=== PATIENT | female | born 1990 | race Caucasian/White ===

== ENCOUNTER 2022-09-11 06:01 | Inpatient (IN) | payer BC ==
[2022-09-10 11:06] LABS: Hemoglobin 10.4 g/dL (12.0-15.5); Platelet Count 232 10x3/uL (150-450)
[2022-09-10 11:50] LABS: HBSAg Index 0.14 S/CO (0-0.99); Hep B Surf Ag Non-Reactive S/CO (NonReactive)
[2022-09-10 11:51] LABS: Syphilis Antibody Nonreactive (Nonreactive); Syphilis Antibody Index 0.03 S/CO (<1.00 Non-Reactive)
[2022-09-11] MEDS ORDERED: hydrALAZINE 20 MG/ML VIAL SLOW IVP PRN ×2 (06:10→11:23)
[2022-09-11] MEDS ORDERED: Promethazine HCl 25 MG/ML VIAL IM PRN ×2 (06:10→07:20)
[2022-09-11] MEDS ORDERED: CEFAZOLIN 2 GM in Sodium Chloride 0.9% 100 ML IVPB SCH (06:10)
[2022-09-11] MEDS ORDERED: Bicitra 30 ML UDCUP PO PRN (06:10)
[2022-09-11] MEDS ORDERED: Ondansetron PF 4 MG/2 ML Vial IVP PRN ×3 (06:10→11:23)
[2022-09-11] MEDS ORDERED: Famotidine/PF 20 mg/2ml Vial SLOW IVP PRN (06:10)
[2022-09-11 06:28] VITALS: BMI 44.6
[2022-09-11] MEDS ORDERED: Lactated Ringer's 1,000 ML IV SCH (06:30)
[2022-09-11] MEDS ORDERED: NS w/ Oxytocin 30 units 500 ML IV SCH (06:30)
[2022-09-11] MEDS ORDERED: Morphine PF 10 MG/10 ML VIAL ONE (07:12)
[2022-09-11] MEDS ORDERED: ePHEDrine Sulfate 50 MG/10 ML VIAL ONE (07:12)
[2022-09-11] MEDS ORDERED: Dexamethasone 4 mg/ml Vial ONE (07:13)
[2022-09-11] MEDS ORDERED: Ketorolac Tromethamine 30 MG/ML VIAL ONE (07:13)
[2022-09-11] MEDS ORDERED: Glycopyrrolate 0.2 MG/ML 5 ML SYRINGE ONE (07:13)
[2022-09-11] MEDS ORDERED: Ondansetron PF 4 MG/2 ML Vial ONE (07:13)
[2022-09-11] MEDS ORDERED: Phenylephrine 40 MG/NS 250 ML 250 ML ONE (07:13)
[2022-09-11] MEDS ORDERED: Oxytocin 10 UNITS/ML VIAL ONE (07:13)
[2022-09-11] MEDS ORDERED: PHENYLEPHRINE-NS 100 MCG/ML 10 ML SYRINGE ONE (07:13)
[2022-09-11] MEDS ORDERED: Ondansetron HCl/PF 4 MG/2 ML Vial IVP PRN (07:20)
[2022-09-11] MEDS ORDERED: Moisturizing Cream (Eucerin) 113 GM JAR TOP PRN (07:20)
[2022-09-11] MEDS ORDERED: Fentanyl 100 MCG/2 ML VIAL SLOW IVP PRN (07:20)
[2022-09-11] MEDS ORDERED: Ketorolac Tromethamine 30 MG/ML VIAL IVP PRN (07:20)
[2022-09-11] MEDS ORDERED: diphenhydrAMINE 50 MG/ML VIAL IVP PRN (07:20)
[2022-09-11] MEDS ORDERED: Naloxone HCl 0.4 mg/ml Vial IV PRN (07:20)
[2022-09-11] MEDS ORDERED: Meperidine HCl/PF 25 MG/ML VIAL SLOW IVP PRN (07:20)
[2022-09-11] MEDS ORDERED: Naloxone HCl 0.4 mg/ml Vial IVP PRN ×2 (07:20)
[2022-09-11] MEDS ORDERED: Promethazine HCl 25 MG SUPP PR PRN (07:20)
[2022-09-11] MEDS ORDERED: Communication Order-Pharmacy FS SCH (07:30)
[2022-09-11] MEDS ORDERED: Ketorolac Tromethamine 30 MG/ML VIAL IVP SCH (07:30)
[2022-09-11] MEDS ORDERED: HYDROcodone/Acetaminophen 5/325 mg Tablet PO PRN (11:23)
[2022-09-11] MEDS ORDERED: diphenhydrAMINE 25 MG CAP PO PRN (11:23)
[2022-09-11] MEDS ORDERED: Lanolin Ointment 7 GM TUBE TOP PRN (11:23)
[2022-09-11] MEDS ORDERED: Bisacodyl 10 MG SUPP PR PRN (11:23)
[2022-09-11] MEDS ORDERED: Simethicone Chewable 80 MG TAB PO PRN (11:23)
[2022-09-11] MEDS ORDERED: Boostrix 0.5 ML (Tdap) VIAL (>/=7 yrs of age) IM ONE (11:23)
[2022-09-11] MEDS ORDERED: Docusate 100 MG CAP PO SCH (11:45)
[2022-09-11] MEDS ORDERED: Ferrous Sulfate 325 MG TAB PO SCH (12:00)
[2022-09-11] MEDS ORDERED: Prenatal Vitamin 1 TAB PO SCH (12:00)
[2022-09-11] MEDS ORDERED: Ibuprofen 800 MG TAB PO SCH (14:00)
[2022-09-11] MEDS: Ketorolac Tromethamine 30 MG/ML VIAL IVP SCH (17:02)
[2022-09-11] MEDS: Ferrous Sulfate 325 MG TAB PO SCH (19:35)
[2022-09-11] MEDS: Docusate 100 MG CAP PO SCH (20:19)
[2022-09-11] MEDS: HYDROcodone/Acetaminophen 5/325 mg Tablet PO PRN (20:19)
[2022-09-12] MEDS: Ketorolac Tromethamine 30 MG/ML VIAL IVP SCH ×2 (00:04→06:03)
[2022-09-12] MEDS: HYDROcodone/Acetaminophen 5/325 mg Tablet PO PRN ×5 (01:01→21:20)
[2022-09-12 04:20] LABS: Mean Corpuscular HGB CONC 32.1 g/dL (32.0-36.0); Mean Corpuscular Hemoglobin 28.4 pg (27.0-33.0); Mean Corpuscular Volume 88.3 fl (81.6-98.3); Mean Platelet Volume 10.3 fl (7.4-10.4); Platelet Count 210 10x3/uL (150-450); RBC Distribution Width 15.4 % (11.5-14.5); Red Blood Cell (RBC) Count 3.17 10x6/uL (3.90-5.03); White Blood Cell (WBC) Count 10.5 10x3/uL (3.5-10.5)
[2022-09-12] MEDS: Docusate 100 MG CAP PO SCH ×2 (08:06→21:18)
[2022-09-12] MEDS: Prenatal Vitamin 1 TAB PO SCH (08:06)
[2022-09-12] MEDS: Ferrous Sulfate 325 MG TAB PO SCH ×2 (08:06→21:18)
[2022-09-12] MEDS: Ibuprofen 800 MG TAB PO SCH ×2 (13:56→21:18)
[2022-09-13] MEDS: HYDROcodone/Acetaminophen 5/325 mg Tablet PO PRN ×4 (01:29→19:58)
[2022-09-13] MEDS: Ibuprofen 800 MG TAB PO SCH ×3 (06:16→21:18)
[2022-09-13] MEDS: Ferrous Sulfate 325 MG TAB PO SCH ×2 (07:59→21:18)
[2022-09-13] MEDS: Prenatal Vitamin 1 TAB PO SCH (07:59)
[2022-09-13] MEDS: Docusate 100 MG CAP PO SCH ×2 (07:59→21:18)
[2022-09-14] MEDS: HYDROcodone/Acetaminophen 5/325 mg Tablet PO PRN ×3 (00:10→12:07)
[2022-09-14] MEDS: Ibuprofen 800 MG TAB PO SCH (05:21)
[2022-09-14] MEDS: Prenatal Vitamin 1 TAB PO SCH (08:12)
[2022-09-14] MEDS: Ferrous Sulfate 325 MG TAB PO SCH (08:12)
[2022-09-14] MEDS: Docusate 100 MG CAP PO SCH (08:13)
[2022-09-14 14:25] VITALS: BP 121/59; TEMP 98.2
== END 2022-09-14 12:40 | disposition home or self-care (01) | DRG 788 ==
LOC: CSHLD 06:01 → CSHPP 10:45
PROVIDERS: ADMIT Obstetrics & Gynecology; ATTEND Obstetrics & Gynecology
PROC: 10D00Z1 Extraction of Products of Conception, Low, Open Approach (ICD-10-PCS; principal; 2022-09-11)
DX: O34.211 Maternal care for low transverse scar from previous cesarean delivery (principal); Z3A.39 39 weeks gestation of pregnancy; Z37.0 Single live birth; F41.9 Anxiety disorder, unspecified; O99.344 Other mental disorders complicating childbirth; O99.824 Streptococcus B carrier state complicating childbirth; O77.0 Labor and delivery complicated by meconium in amniotic fluid; O90.81 Anemia of the puerperium; D50.8 Other iron deficiency anemias; Z67.21 Type B blood, Rh negative; Z98.890 Other specified postprocedural states
CPT/HCPCS: 36415; 51702; 85014; 85018; 85027; 85049; 86780; 86850; 86900; 86901; 87340; J1100; J1885; J2274; J2405; J2590

== ENCOUNTER 2022-09-20 22:30 | Inpatient (IN) | payer BC ==
[~2022-09-20 22:30] MED LIST: Iopamidol 300 61% 100 ML VIAL FS ONE
[2022-09-20] MEDS ORDERED: Morphine 4 MG/ML VIAL ONE (23:27)
[2022-09-20] MEDS ORDERED: Ondansetron PF 4 MG/2 ML Vial ONE (23:27)
[2022-09-20 23:47] LABS: #Basophils 0.1 10x3/uL (0.0-0.2); #Eosinphils 0.3 10x3/uL (0.0-0.5); #Monocytes 0.8 10x3/uL (0.0-1.1); #Neutrophils 12.9 10x3/uL (1.5-8.4); %Basophils 0.3 % (0.0-2.0); %Eosinophils 1.7 % (0.0-6.0); %Lymphocytes 9.5 % (18.0-47.0); %Monocytes 5.1 % (0.0-10.0); %Neutrophils 82.3 % (40.0-75.0); Bilirubin Neg (Negative); Blood, Urine 250 (Negative); Clarity Slightly Cloudy (Clear); Glucose, Urine (Dipstick) Normal (Negative); Hemoglobin 11.4 g/dL (12.0-15.5); Ketone, Urine Negative (Negative); Leukocyte 100 (Negative); Mean Corpuscular HGB CONC 32.2 g/dL (32.0-36.0); Mean Corpuscular Hemoglobin 28.1 pg (27.0-33.0); Mean Corpuscular Volume 87.2 fl (81.6-98.3); Mean Platelet Volume 9.3 fl (7.4-10.4); Nitrite Negative (Negative); Platelet Count 315 10x3/uL (150-450); Protein, Urine (Dipstick) 30 mg/dl (Neg-Trace); RBC Distribution Width 15.4 % (11.5-14.5); Red Blood Cell (RBC) Count 4.06 10x6/uL (3.90-5.03); Specific Gravity, Urine 1.025 (1.005-1.030); Urobilinogen Normal mg/dL (Less than 2); White Blood Cell (WBC) Count 15.7 10x3/uL (3.5-10.5)
[2022-09-20 23:57] LABS: Bacteria/HPF Rare-Few HPF (None Seen); RBC/HPF 21-50 HPF (0-3); Squamous Epithelial 0-3 HPF (0-3)
[2022-09-21 00:01] LABS: ALT (SGPT) 31 U/L (8-55); AST (SGOT) 26 U/L (5-34); Albumin 3.8 g/dL (3.5-5.0); Alkaline Phosphatase 72 U/L (40-110); Anion Gap 16 mmol/L (10-20); BUN (Urea Nitrogen) 16 mg/dL (7.0-18.7); Bilirubin, Total 0.3 mg/dL (0.2-1.2); Calc. Creatinine Clearance 0 mL/min (70-130); Calcium 8.7 mg/dL (7.8-10.44); Carbon Dioxide 21 mmol/L (22-29); Chloride 103 mmol/L (98-107); Estimated GFR 98; Globulin 2.9 g/dL (2.4-3.5); Glucose 100 mg/dL (70-105); Potassium 3.7 mmol/L (3.5-5.1); Protein, Total 6.7 g/dL (6.0-8.3); Sodium 136 mmol/L (136-145)
[2022-09-21] MEDS ORDERED: Piperacillin/Tazobactam 3.375 GM VIAL ONE (00:21)
[2022-09-21] MEDS ORDERED: HYDROmorphone 0.5 MG/0.5 ML SYRINGE ONE (00:29)
[2022-09-21] MEDS ORDERED: Morphine 4 MG/ML VIAL SLOW IVP PRN ×2 (01:59→10:47)
[2022-09-21] MEDS ORDERED: Ondansetron PF 4 MG/2 ML Vial IVP PRN ×2 (02:00→10:47)
[2022-09-21] MEDS ORDERED: Acetaminophen 325 MG TAB PO PRN (02:00)
[2022-09-21] MEDS ORDERED: Ondansetron ODT 4 MG TAB SL PRN (02:00)
[2022-09-21 02:03] VITALS: BMI 37.3
[2022-09-21] MEDS: HYDROmorphone 0.5 MG/0.5 ML SYRINGE SLOW IVP PRN ×3 (02:18→08:59)
[2022-09-21] MEDS: Sodium Chloride 0.9% 1,000 ML IV SCH ×2 (02:19→09:53)
[2022-09-21] MEDS ORDERED: Piperacillin/Tazobactam 3.375 GM in Sodium Chloride 0.9% 100 ML IVPB SCH (08:45)
[2022-09-21] MEDS ORDERED: Bupivacaine HCl 0.5%/Epinephrine 1:200,000/PF 30 ml Vial ONE (08:58)
[2022-09-21] MEDS ORDERED: SUGAMMADEX SODIUM 200 MG/2 ML VIAL ONE (08:58)
[2022-09-21] MEDS ORDERED: PROPOFOL 20 ML ONE (09:08)
[2022-09-21] MEDS ORDERED: Fentanyl 100 MCG/2 ML VIAL ONE (09:08)
[2022-09-21] MEDS ORDERED: Ondansetron PF 4 MG/2 ML Vial ONE (09:09)
[2022-09-21] MEDS ORDERED: Rocuronium Bromide 10 MG/ML (10ML VIAL) ONE (09:09)
[2022-09-21] MEDS ORDERED: Dexamethasone 20 MG/5 ML VIAL ONE (09:09)
[2022-09-21] MEDS ORDERED: Ketorolac Tromethamine 30 MG/ML VIAL ONE ×2 (09:11→10:36)
[2022-09-21] MEDS ORDERED: Glycopyrrolate 0.2 MG/ML 5 ML SYRINGE ONE (09:11)
[2022-09-21] MEDS ORDERED: Succinylcholine 200 MG/10 ml SYRINGE FS ONE (09:11)
[2022-09-21] MEDS ORDERED: PHENYLEPHRINE-NS 100 MCG/ML 10 ML SYRINGE ONE (10:13)
[2022-09-21] MEDS ORDERED: Promethazine HCl 25 MG/ML VIAL IM PRN (10:47)
[2022-09-21] MEDS ORDERED: Dextrose 50% Abboject 50 ML SYRINGE SLOW IVP PRN (10:47)
[2022-09-21] MEDS ORDERED: Morphine 2 MG/ML VIAL SLOW IVP PRN (10:47)
[2022-09-21] MEDS ORDERED: HYDROcodone/Acetaminophen 10/325 mg Tablet PO PRN (10:47)
[2022-09-21] MEDS ORDERED: Dextrose 5% in Water 1,000 ML IV PRN (10:47)
[2022-09-21] MEDS ORDERED: hydrALAZINE 20 MG/ML VIAL SLOW IVP PRN (10:47)
[2022-09-21] MEDS ORDERED: Ipratropium/Albuterol 3 ML NEB NEB PRN (10:47)
[2022-09-21] MEDS: D5 1/2 NS w/20 mEq KCL 1,000 ML IV SCH (12:00)
[2022-09-21] MEDS: Piperacillin/Tazobactam 3.375 GM in Sodium Chloride 0.9% 100 ML IVPB SCH ×2 (13:48→21:23)
[2022-09-21] MEDS: Ketorolac Tromethamine 30 MG/ML VIAL IVP SCH ×2 (16:30→22:32)
[2022-09-21] MEDS: HYDROcodone/Acetaminophen 10/325 mg Tablet PO PRN ×2 (18:47→23:39)
[2022-09-21] MEDS ORDERED: Famotidine/PF 20 mg/2ml Vial SLOW IVP SCH (21:00)
[2022-09-21] MEDS ORDERED: Famotidine 20 MG TAB PO SCH (21:00)
[2022-09-22] MEDS: D5 1/2 NS w/20 mEq KCL 1,000 ML IV SCH ×2 (02:12→04:59)
[2022-09-22 04:03] LABS: #Monocytes 0.5 10x3/uL (0.0-1.1); #Neutrophils 8.1 10x3/uL (1.5-8.4); %Basophils 0.2 % (0.0-2.0); %Eosinophils 0.1 % (0.0-6.0); %Lymphocytes 12.3 % (18.0-47.0); %Monocytes 5.2 % (0.0-10.0); %Neutrophils 81.2 % (40.0-75.0); Hemoglobin 9.7 g/dL (12.0-15.5); Mean Corpuscular HGB CONC 32.1 g/dL (32.0-36.0); Mean Corpuscular Hemoglobin 28.5 pg (27.0-33.0); Mean Corpuscular Volume 88.8 fl (81.6-98.3); Mean Platelet Volume 9.8 fl (7.4-10.4); Platelet Count 293 10x3/uL (150-450); RBC Distribution Width 15.4 % (11.5-14.5); White Blood Cell (WBC) Count 9.9 10x3/uL (3.5-10.5)
[2022-09-22 04:09] LABS: Anion Gap 13 mmol/L (10-20); BUN (Urea Nitrogen) 12 mg/dL (7.0-18.7); Calc. Creatinine Clearance 0 mL/min (70-130); Calcium 7.6 mg/dL (7.8-10.44); Carbon Dioxide 19 mmol/L (22-29); Chloride 109 mmol/L (98-107); Estimated GFR 118; Glucose 128 mg/dL (70-105); Potassium 3.9 mmol/L (3.5-5.1); Sodium 137 mmol/L (136-145)
[2022-09-22] MEDS ORDERED: Ketorolac Tromethamine 30 MG/ML VIAL ONE (04:39)
[2022-09-22] MEDS: Piperacillin/Tazobactam 3.375 GM in Sodium Chloride 0.9% 100 ML IVPB SCH (04:58)
[2022-09-22] MEDS: Ketorolac Tromethamine 30 MG/ML VIAL IVP SCH (04:59)
[2022-09-22 08:34] VITALS: BP 110/56; TEMP 98.1
== END 2022-09-22 08:45 | disposition home or self-care (01) | DRG 769 ==
LOC: CSHERS 22:30 → INTOOBSV 09-21 01:56 → CSHTELE 09-21 01:56 → OBSVTOIN 09-21 10:47
PROVIDERS: ADMIT Surgery; ATTEND Physician Assistant Medical
PROC: 0DTJ4ZZ Resection of Appendix, Percutaneous Endoscopic Approach (ICD-10-PCS; principal; 2022-09-21)
DX: O99.63 Diseases of the digestive system complicating the puerperium (principal); K35.891 Other acute appendicitis without perforation, with gangrene; K43.2 Incisional hernia without obstruction or gangrene
CPT/HCPCS: 36415; 74177; 80048; 80053; 81003; 81015; 85025; 86900; 86901; 87040; 87070; 87205; 88304; 94760; 96365; 96375; 96376; A4649; G0378; J1100; J1170; J1885; J2270; J2405; J2543; J2704; J3010; J3480; J3490; J7050; Q9967